=== PATIENT | male | born 1985 | race Caucasian/White ===

== ENCOUNTER 2023-03-08 12:05 | Emergency (ER) | payer OTHER, SELFPAY ==
[2023-03-08 12:23] VITALS: BP 140/88; PULSE 73; RESP 16; TEMP 36.5; O2SAT 98; BMI 29.8
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
== END 2023-03-08 14:42 | disposition home or self-care (01) ==
LOC: ED 14:39
PROVIDERS: Emergency Provider Emergency Medicine
DX: S61.012A Laceration without foreign body of left thumb without damage to nail, initial encounter (principal); W20.8XXA Other cause of strike by thrown, projected or falling object, initial encounter; Y99.0 Civilian activity done for income or pay
CPT/HCPCS: 12001; 95992; 99283